=== PATIENT | female | born 1950 | race Caucasian/White ===

== ENCOUNTER → 2019-09-12 14:46 | Outpatient (CLI) | payer MEDICARE, SELFPAY ==
--- NOTE | ~2019-09-12 | MM_ITS ---
EXAMINATION: MM screening [facility] BI w jennifer HISTORY: Screening mammogram TECHNIQUE: Craniocaudal and mediolateral oblique 3-D tomosynthesis images were obtained and synthetic 2-D images were generated. CAD analysis was submitted and interpreted. COMPARISON: 04/08/2018, 03/15/2018, 09/22/2016, 09/07/2015 BREAST PARENCHYMAL COMPOSITION: There are scattered areas of fibroglandular density. FINDINGS: There is no evidence of suspicious mass, calcification, or architectural distortion to sugg est malignancy in either breast. There has been no suspicious interval change. IMPRESSION: 1. No mammographic evidence of malignancy. 2. Recommend routine screening mammography in one year. BI-RADS Category 1: Negative Reviewed, dictated and finalized at location A.
== END ==
PROVIDERS: Visit Provider Obstetrics & Gynecology
DX: Z12.31 Encounter for screening mammogram for malignant neoplasm of breast (principal)
CPT/HCPCS: 77063; 77067

== ENCOUNTER 2019-10-07 11:07 | Emergency (ER) | payer MEDICARE, SELFPAY ==
[2019-10-07 11:18] VITALS: BP 153/78; PULSE 76; RESP 16; TEMP 37.2; O2SAT 100
--- NOTE | 2019-10-07 11:23 | ED.GENADULT ---
HPI - General Adult General Chief complaint: Extremity Injury, Lower Stated complaint: Right Knee pain Time Seen by Provider: 10/07/19 11:24 Source: patient and RN notes reviewed Mode of arrival: ambulatory Limitations: no limitations History of Present Illness HPI narrative: This is a 68 years old female presented office for evaluation of right knee pain since yesterday. She was walking in her yard and must have tripped over a hole or something; when she felt a twisted on her knee. Did not fall down onto the ground. She noticed the pain is getting worse overnight and this morning. So she try [id number] icy hot patch and [id number] pain medication. She complained of pain around her kneecap however it felt better when she massages it. Denies history of knee fracture or surgery in the past. 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 Denies any other associated symptoms such as fever, stomache ache, joins pain, or urinary symptoms. Related Data Home Medications Medication Instructions Recorded Confirmed carvedilol 10/07/19 hydrochlorothiazide 10/07/19 losartan 10/07/19 Allergies Allergy/AdvReac Type Severity Reaction Status Date / Time No Known Allergies Allergy Mild Unverified 09/25/06 14:33 levofloxacin Allergy Unknown HIVES Verified 01/17/09 07:31 NKDA,NKFA Allergy Mild Uncoded 09/22/06 16:04 Review of Systems Review of Systems: Narrative: CONSTITUTIONAL: Denies fever, chills ENT: Denies rhinorrhea, congestion, sore throat, otalgia. CARDIOVASCULAR: Denies chest pain, palpitation, edema. RESPIRATORY: Denies dyspnea, wheezing, cough GASTROINTESTINAL: Denies abdominal pain, nausea, vomiting, diarrhea. GENITOURINARY: Denies urinary symptoms or discharge SKIN: Denies rash MUSCULOSKELETAL: Reports right knee pain and felt swollen NEUROLOGIC: Denies lightheaded All other systems reviewed are negative, except as documented in HPI. FOR[facility]LY [facility] Past Medical History Medical History (Updated 10/07/19 @ 11:39 by ROSSANA Rowe) Anxiety and depression Arthritis HTN (hypertension) Comments At time of signature, I agree with nursing past medical, surgical, social and family history. There is no relevant family history pertinent to the presenting complaint. Exam Narrative: Exam Narrative: GENERAL: This is a well-nourished, well-developed patient, in no apparent distress. CARDIOVASCULAR: Regular rate and rhythm without murmurs, gallops, or rubs. RESPIRATORY: Clear to auscultation. Breath sounds equal bilaterally. No wheezes, rales, or rhonchi. GASTROINTESTINAL: Abdomen soft, non-tender, nondistended. Bowel sounds are active. No hepato-splenomegaly, or palpable masses. No guarding. SKIN: warm, intact with no suspicious lesions or rash, good texture and turgor. NEURO: awake, alert, and oriented to person, place and time. There were no obvious focal neurologic abnormalities. Steady gait EXTREMITIES:Patient is able to bear weight and ambulate without obvious pain. No surface of trauma or obvious effusion. No overlying erythema or warmth. The R knee is without obvious asymmetry or deformity when comparing to the left. Patient is able to do a deep knee bend with symmetry. Fully extended knee, internal and external rotation. Nontender to palpate of the patella, no effusion. Nontender over the proximal fibular head. Nontender, fullness, or mass of the popliteal fossa. NO quadriceps tenderness. Distal motor and neurovascular status intact. Coretta Coma Scale Eye Opening: Spontaneous 4 [place]oretta Coma Scale Motor: Obeys Commands 6 [place] Coma Scale Verbal: Oriented 5 Course Vital Signs Vital signs: Vital Signs Temperature 99.0 F 10/07/19 11:18 Pulse Rate 76 10/07/19 11:18 Respiratory Rate 16 10/07/19 11:18 Blood Pressure 153/78 H 10/07/19 11:18 Pulse Oximetry 100 10/07/19 11:18 Temperature 99.0 F 08/0
== END 2019-10-07 11:45 | disposition home or self-care (01) ==
PROVIDERS: Emergency Provider Nurse Practitioner; PCP Internal Medicine
DX: M25.561 Pain in right knee (principal); M19.90 Unspecified osteoarthritis, unspecified site; I10 Essential (primary) hypertension
CPT/HCPCS: 99213; G0463

== ENCOUNTER → 2020-06-20 13:12 | Outpatient (CLI) | payer MEDICARE, SELFPAY ==
--- NOTE | ~2020-06-20 | DEXA_ITS ---
Bone Density Report Name: Valeria Robbins Age: 69 Sex: Female Ethnicity: White Date of : 1950 Indication: postmenopausal; screening for osteoporosis; height loss; hysterectomy; Referring Provider: Will, Christina Dennis Study: Bone densitometry was performed. Exam Date: June 20, 2020 Accession number: [id number] Bone Density: Region BMD T-score Z-score Classification AP Spine (L1-L4) 1.017 -0.3 1.7 Normal Femoral Neck (Left) 0.745 -0.9 0.8 Normal Total Hip (Left) 0.890 -0.4 1.0 Normal Femoral Neck (Right) 0.764 -0.8 0.9 Normal Total Hip (Right) 0.900 -0.3 1.1 Normal Total Hip Mean 0.895 -0.4 1.1 Normal World Health Organization criteria for BMD impression classify patients as: Normal (T-score at or above -1.0), Osteopenia (T-score between -1.0 and -2.5), or Osteoporosis (T-score at or below -2.5). 10-year Fracture Risk: FRAX not reported because: All T-scores for Spine Total, Hip Total, Femoral Neck at or above -1.0 Previous Exams: Region Exam Age BMD T-score BMD Change BMD Change Date g/cm2 vs Baseline vs Previous AP Spine(L1-L4) 06/20/2020 69 1.017 -0.3 -0.055* -0.032* 09/22/2016 65 1.049 0.0 -0.023* -0.017 06/22/2013 62 1.067 0.2 -0.005 0.012 12/06/2007 57 1.054 0.1 -0.018 -0.018 08/11/2005 54 1.072 0.2 Total Hip(Left) 06/20/2020 69 0.890 -0.4 -0.181* -0.030* 09/22/2016 65 0.921 -0.2 -0.151* 0.004 06/22/2013 62 0.917 -0.2 -0.155* -0.047* 12/06/2007 57 0.963 0.2 -0.108* -0.108* 08/11/2005 54 1.072 1.1 Total Hip(Right) 06/20/2020 69 0.900 -0.3 -0.149* -0.017 09/22/2016 65 0.917 -0.2 -0.132* -0.065* 06/22/2013 62 0.982 0.3 -0.067* 0.015 12/06/2007 57 0.966 0.2 -0.082* -0.082* 08/11/2005 54 1.049 0.9 *Denotes significance at 95% confidence level, LSC for AP Spine = 0.022 g/cm2, LSC for Total Hip = 0.027 g/cm2 Clinical Information Provided by Patient: Has used the following medications: Vitamin D, Calcium Has the following medical conditions: Hysterectomy, OVARIES RX Patient maximum height was 66 Menopause Age: 46 Drinks caffeinated beverages Onset of menses at age 14 Number of children 2 Impression: The patient has normal bone mass. The BMD for the
== END ==
PROVIDERS: PCP Internal Medicine; Visit Provider Obstetrics & Gynecology
DX: Z78.0 Asymptomatic menopausal state (principal)
CPT/HCPCS: 77080

== ENCOUNTER → 2020-12-05 13:24 | Outpatient (CLI) | payer MEDICARE, SELFPAY ==
--- NOTE | ~2020-12-05 | MM_ITS ---
EXAMINATION: MM screening [facility] BI w jennifer HISTORY: Screening mammogram TECHNIQUE: Craniocaudal and mediolateral oblique 3-D tomosynthesis images were obtained and synthetic 2-D images were generated. CAD analysis was submitted and interpreted. COMPARISON: 09/12/2019, 04/08/2018, 03/15/2018 BREAST PARENCHYMAL COMPOSITION: There are scattered areas of fibroglandular density. FINDINGS: There is no evidence of suspicious mass, calcification, or architectural distortion to sugg est malignancy in either breast. There has been no suspicious interval change. IMPRESSION: 1. No mammographic evidence of malignancy. 2. Recommend routine screening mammography in one year. BI-RADS Category 1: Negative Reviewed, dictated and finalized at location A.
== END ==
PROVIDERS: PCP Internal Medicine; Visit Provider Internal Medicine
DX: Z12.31 Encounter for screening mammogram for malignant neoplasm of breast (principal)
CPT/HCPCS: 77063; 77067

== ENCOUNTER 2021-02-14 14:10 | Emergency (ER) | payer MEDICARE, SELFPAY ==
[2021-02-14 14:31] VITALS: BP 182/84; PULSE 79; RESP 20; TEMP 36.4; O2SAT 99
--- NOTE | 2021-02-14 14:47 | ED.GENADULT ---
HPI - General Adult General Chief complaint: Extremity Injury, Lower Stated complaint: Left Leg Pain Source: patient Mode of arrival: ambulatory Limitations: no limitations History of Present Illness HPI narrative: Patient is a 70-year-old female who presents to the [facility] via POV for evaluation of left back, buttock and left thigh pain that began 4 days ago after moving heavy objects and raking. She reports the pain is constant and shooting in nature. She also reports a tingling sensation in left leg. No relief with OTC medications. Everything worsens symptoms. Of note, patient states she was recently prescribed 2 new antihypertensives. She states she takes all antihypertensives with the exception of hydrochlorothiazide. She reports her baseline BPs to be 150s/80s. Related Data Home Medications Medication Instructions Recorded Confirmed carvedilol 10/07/19 hydrochlorothiazide 10/07/19 losartan 10/07/19 paroxetine HCl mg PO 02/14/21 Allergies Allergy/AdvReac Type Severity Reaction Status Date / Time levofloxacin Allergy Unknown HIVES Verified 01/17/09 07:31 Review of Systems Review of Systems: Denies injury. Pertinent negatives fever, chills, sweats, change in appetite, poor p.o. intake, malaise, headache, stiffness, spasms, abdominal pain, nausea, vomiting, diarrhea, constipation, dysuria, urinary frequency/urgency, hematuria, urinary retention, flank pain, bladder/bowel incontinence, skin color changes, deformity, numbness, loss of sensation, decreased ROM, difficulty with ambulation/coordination, chest pain, heart palpitations/murmurs, and sob. PMFSH Past Medical History Medical History Anxiety and depression Arthritis HTN (hypertension) Comments I have reviewed and agree with the patient's past medical, surgical, social, and family hx as documented by the RN. There is no relevant family history pertinent to the presenting complaint. Exam Narrative: GENERAL: Well-appearing, well-nourished, and in no acute distress. HEAD: Normocephalic, atraumatic. NECK: Supple. No lymphadenopathy or nuchal rigidity. No evidence of pain, decreased ROM, or deformity. CHEST: Lung sounds are clear to auscultation in bilateral lung jack. No respiratory distress. HEART: Regular rate and rhythm. No murmur heard. Normal peripheral pulses. ABDOMEN: Soft, nontender, nondistended, normal active bowel sounds in all quadrants. No guarding. No rebound tenderness. No pulsatile or palpable abdominal mass(es). No CVAT EXTREMITIES: Normal range of motion. No edema. BACK: Full ROM. No evidence of deformity, spasm, mass, spinal tenderness, or swelling. Left SLR test of at 15 degrees. Slowed gait. ambulates hunched over SKIN: Warm, dry, no rash. No skin color changes. Excellent turgor. NEURO: No focal deficits. Alert and oriented x3. Course Vital Signs Vital signs: Vital Signs Temperature 97.5 F L 02/14/21 14:31 Pulse Rate 79 02/14/21 14:31 Respiratory Rate 20 02/14/21 14:31 Blood Pressure 182/84 H 02/14/21 14:31 Pulse Oximetry 99 02/14/21 14:31 Temperature 97.5 F L 02/14/21 14:31 Pulse Rate 79 02/14/21 14:31 Respiratory Rate 20 02/14/21 14:31 Blood Pressure 182/84 H 02/14/21 14:31 Pulse Oximetry 99 02/14/21 14:31 Medical Decision Making Differential Diagnosis Differential Diagnosis: Spinal stenosis, radiculopathy/sciatica,cauda equina syndrome, sacroiliac pathology, fracture, strain, spasm, UTI, pyelonephritis, nephrolithiasis Medical Records Medical records reviewed: Yes I reviewed the external patient's medical records. Vital Signs Vital Signs: Vital Signs Temperature 97.5 F L 02/14/21 14:31 Pulse Rate 79 02/14/21 14:31 Respiratory Rate 20 02/14/21 14:31 Blood Pressure 182/84 H 02/14/21 14:31 Pulse Oximetry 99 02/14/21 14:31 Temperature 97.5 F L 02/14/21 14:31 Pulse Rate 79 01/30
== END 2021-02-14 15:30 | disposition home or self-care (01) ==
PROVIDERS: Emergency Provider Nurse Practitioner Family; PCP Internal Medicine
DX: M54.42 Lumbago with sciatica, left side (principal); M19.90 Unspecified osteoarthritis, unspecified site; I10 Essential (primary) hypertension
CPT/HCPCS: 99213; G0463

== ENCOUNTER → 2022-01-13 07:57 | Outpatient (CLI) | payer MEDICARE, SELFPAY ==
--- NOTE | ~2022-01-13 | MMUS_ITS ---
EXAMINATION: MM diagnostic doe BI w jennifer, US breast RT limited HISTORY: Palpable right breast abnormality. TECHNIQUE: Additional 3-D tomosynthesis images of the breasts were performed and synthetic 2-D images were generated. CAD analysis was submitted and interpreted. High resolution Limited right breast ult rasound was performed. COMPARISON: Comparison to multiple prior studies sequentially, with oldest reviewed study dated 10/2015. BREAST PARENCHYMAL COMPOSITION: Breast composed of scattered areas of fibroglandular density FINDINGS: MAMMOGRAPHIC FINDINGS: There are no suspicious masses, calcifications or architectural distortion in the right breast to sug gest malignancy. ULTRASOUND: Limited right breast ultrasound: Normal heterogeneous echotexture in the area of palpable concern at the 11-12:00 position, 8 cm from the nipple. IMPRESSION: 1. No evidence for malignancy in either breast. 2. Routine yearly screening mammogram and regular clinical breast examination are recommended. BI-RADS Category 1: Negative Reviewed, dictated and finalized at location A. [place] [employer] IMPRESSION: 1. No evidence for malignancy in either breast. 2. Routine yearly screening mammogram and regular clinical breast examination a re recommended. BI-RADS Category 1: Negative
== END ==
PROVIDERS: PCP Internal Medicine; Visit Provider Internal Medicine
DX: N63.10 Unspecified lump in the right breast, unspecified quadrant (principal); R92.2 Inconclusive mammogram
CPT/HCPCS: 76642; 77062; 77066; G0279

== ENCOUNTER → 2023-03-06 12:02 | Outpatient (CLI) | payer MEDICARE, OTHER, SELFPAY ==
--- NOTE | ~2023-03-06 | DEXA_ITS ---
Bone Density Report Name: PHILIPPE HOOD Age: 72 Sex: Female Ethnicity: White Date of : 1950 Indication: postmenopausal; screening for osteoporosis; height loss; hysterectomy; Referring Provider: JONNA, AREN Garner Study: Bone densitometry was performed. Exam Date: March 06, 2023 Accession number: [id number] Bone Density: Region BMD T-score Z-score Classification AP Spine (L1-L4) 0.996 -0.5 1.7 Normal Femoral Neck (Left) 0.756 -0.8 1.0 Normal Total Hip (Left) 0.833 -0.9 0.7 Normal Femoral Neck (Right) 0.759 -0.8 1.1 Normal Total Hip (Right) 0.864 -0.6 0.9 Normal Total Hip Mean 0.849 -0.8 0.8 Normal World Health Organization criteria for BMD impression classify patients as: Normal (T-score at or above -1.0), Osteopenia (T-score between -1.0 and -2.5), or Osteoporosis (T-score at or below -2.5). 10-year Fracture Risk: FRAX not reported because: All T-scores for Spine Total, Hip Total, Femoral Neck at or above -1.0 Previous Exams: Region Exam Age BMD T-score BMD Change BMD Change Date g/cm2 vs Baseline vs Previous AP Spine(L1-L4) 03/06/2023 72 0.996 -0.5 -0.076* -0.021 06/20/2020 69 1.017 -0.3 -0.055* -0.032* 09/22/2016 65 1.049 0.0 -0.023* -0.017 06/22/2013 62 1.067 0.2 -0.005 0.012 12/06/2007 57 1.054 0.1 -0.018 -0.018 08/11/2005 54 1.072 0.2 Total Hip(Left) 03/06/2023 72 0.833 -0.9 -0.238* -0.057* 06/20/2020 69 0.890 -0.4 -0.181* -0.030* 09/22/2016 65 0.921 -0.2 -0.151* 0.004 06/22/2013 62 0.917 -0.2 -0.155* -0.047* 12/06/2007 57 0.963 0.2 -0.108* -0.108* 08/11/2005 54 1.072 1.1 Total Hip(Right) 03/06/2023 72 0.864 -0.6 -0.185* -0.036* 06/20/2020 69 0.900 -0.3 -0.149* -0.017 09/22/2016 65 0.917 -0.2 -0.132* -0.065* 06/22/2013 62 0.982 0.3 -0.067* 0.015 12/06/2007 57 0.966 0.2 -0.082* -0.082* 08/11/2005 54 1.049 0.9 *Denotes significance at 95% confidence level, LSC for AP Spine = 0.022 g/cm2, LSC for Total Hip = 0.027 g/cm2 Clinical Information Provided by Patient: Has used the following medications: Vitamin D Has the following medical conditions: Hysterectomy, OVARIES RX Patient maximum height was 66.0 Menopause Age: 46 Drinks caffeinated beverages
== END ==
PROVIDERS: PCP Internal Medicine; Visit Provider Internal Medicine
DX: M81.0 Age-related osteoporosis without current pathological fracture (principal)
CPT/HCPCS: 77080

== ENCOUNTER 2025-01-17 12:20 | Outpatient (CLI) | payer MEDICARE, OTHER, SELFPAY ==
--- NOTE | ~2025-01-17 | CT_ITS ---
EXAMINATION: CT orbit BI wo/w con DATE: 01/17/2025 13:15 INDICATION: Fourth nerve palsy, rt eye TECHNIQUE: Computed tomography (CT) of the orbits was performed without and with 75 mL Omnipaque-350 intravenous contrast. Additional 3D reconstructions utilizing coronal maximum intensity projection (MIP) were performed. Automated exposure control and iterative reconstruction technique were employed. The dose- length product was 346.82 mGy-cm. COMPARISON: None FINDINGS: Changes of bilateral intraocular lens replacement. Orbits are otherwise normal. Paranasal sinuses with the bilateral mastoid air cells and middle ear cavities are all clear. Small amount of nonhemodynamically significant atherosclerotic plaque at the bilateral carotid bulbs and along the left vertebral artery. Bilateral A1 and P1 segments are patent. No hemodynamically significant stenosis or aneurysms identified. No abnormal intracranial or extracranial masses identified. IMPRESSION: 1. Changes of bilateral intraocular lens replacement. Orbits are otherwise unremarkable. Reviewed, dictated and finalized at location A. [employer] IMPRESSION: 1. Changes of bilateral intraocular lens replacement. Orbits are otherwise unre markable.
[2025-01-17 13:00] LABS: Estimated Glomerular Filt Rate > 60
== END 2025-01-17 12:21 | disposition home or self-care (01) ==
PROVIDERS: PCP Internal Medicine
DX: H49.11 Fourth [trochlear] nerve palsy, right eye (principal)
CPT/HCPCS: 70482; Q9967